=== PATIENT | male | born 1985 | race Two or more races ===

== ENCOUNTER 2021-03-26 16:05 | Emergency (ER) | payer OTHER ==
[~2021-03-26] VITALS: Ht 182.9 cm; Wt 109.3 kg
[2021-03-26 16:09] VITALS: BP 180/113
[2021-03-26] MEDS ORDERED: cloNIDine HCL 0.1 MG TAB PO ONE (17:15)
== END 2021-03-26 21:24 | disposition home or self-care (01) ==
LOC: ER 16:05
DX: S00.511A Abrasion of lip, initial encounter (principal); W01.198A Fall on same level from slipping, tripping and stumbling with subsequent striking against other object, initial encounter; Y93.89 Activity, other specified; Y92.89 Other specified places as the place of occurrence of the external cause; Y99.8 Other external cause status
CPT/HCPCS: 70486

== ENCOUNTER 2022-03-20 02:15 | Emergency (ER) | payer BC, OTHER ==
[~2022-03-20] VITALS: Ht 180.3 cm; Wt 111.1 kg
[2022-03-20 03:30] LABS: Basophils # (auto) 0.1 10 ^3/uL (0-0.2); Basophils % (auto) 1.4 % (0.0-2.0); Eosinophils # (auto) 0.2 10 ^3/uL (0-0.8); Eosinophils % (auto) 3.5 % (0.0-7.0); Hematocrit 44.3 % (41.0-53.0); Hemoglobin 14.9 g/dL (13.5-17.5); Lymphocytes # (auto) 2.4 10 ^3/uL (0.4-5.4); Lymphocytes % (auto) 35.3 % (10.0-50.0); Mean Corpuscular Hgb Conc. 33.6 g/dL (32.0-36.0); Mean Corpuscular Volume 89.5 fL (80.0-100.0); Monocytes # (auto) 0.4 10 ^3/uL (0-1.3); Neutrophils # (auto) 3.7 10 ^3/uL (1.6-8.6); Neutrophils % (auto) 53.8 % (37.0-80.0); Nucleated Red Blood Cells % 0.1 %; Red Blood Cells 4.95 10^6/uL (4.5-5.90); Red Cell Distribution Width 12.7 % (11.8-14.3); White Blood Cell 6.8 10^3/uL (4.4-10.8)
[2022-03-20 03:50] LABS: Albumin 3.4 g/dL (3.4-5.0); BUN/Creatinine Ratio 19.3; Calcium 8.4 mg/dL (8.5-10.1); Potassium 3.5 mmol/L (3.5-5.1)
[2022-03-20 03:53] LABS: Bilirubin, Total 0.4 mg/dL (0.2-1.0); Total Protein 6.9 g/dL (6.4-8.2)
[2022-03-20 03:57] VITALS: BP 138/92
== END 2022-03-20 04:38 | disposition home or self-care (01) ==
LOC: ER 02:31
DX: J95.831 Postprocedural hemorrhage of a respiratory system organ or structure following other procedure (principal); Z90.89 Acquired absence of other organs
CPT/HCPCS: 36415; 80053; 85025